=== PATIENT | male | born 1985 | race Caucasian/White ===

== ENCOUNTER 2018-10-11 22:28 | Emergency (ER) | payer SELFPAY ==
--- NOTE | 2018-10-11 22:44 | ED Physician Documentation ---
PD HPI SKIN - Stated complaint Stated Complaint: RASH - Chief complaint Chief Complaint: Wound - History obtained from History obtained from: Patient - History of Present Illness Timing - onset: How many days ago (2-3) Timing - duration: Days Timing - details: Gradual onset Location: RUE, LUE Quality / character: Painful, Burning, Discolored, Draining Associated symptoms: No: Fever Similar symptoms before: Diagnosis (similar to previous MRSA infection) - Additional information Additional information: c/o BUE lesions x few days that are painful, 1-2 of which are draining pus, and patient says are similar to previous MRSA infection Review of Systems Constitutional: denies: Fever, Chills, Sweats Skin: reports: Lesions (BUE) Musculoskeletal: denies: Extremity swelling PD PAST MEDICAL HISTORY - Past Medical History Past Medical History: Yes Cardiovascular: Hypertension Psych: ADD/ADHD - Present Medications Home Medications: Ambulatory Orders Medication Instructions Recorded Confirmed Dextroamphetamine/Amphetamine 30 mg PO DAILY 10/11/18 10/11/18 [Adderall Xr 30 mg Capsule] Losartan Potassium 1 tab PO DAILY 10/11/18 10/11/18 Sulfamethox/Trimeth 800/160 1 each PO BID #13 tablet 10/11/18 [Bactrim Ds 800/160] Testosterone Cypionate 0.5 ml IM 10/11/18 - Allergies Allergies/Adverse Reactions: Allergies Allergy/AdvReac Type Severity Reaction Status Date / Time No Known Drug Allergies Allergy Verified 10/11/18 22:36 PD ED PE NORMAL - Vitals Vital signs reviewed: Yes - General General: Alert and oriented X 3, No acute distress, Well developed/nourished - Derm Derm: Other (left thumb and right FA each have a single erythematous, tender raised area of swelling that is 0.5 cm diameter and without active drainage, no fluctuance.) Results - Vitals Vitals: Vital Signs - 24 hr 10/11/18 10/11/18 22:32 23:12 Temperature 37.2 C Heart Rate 96 84 Respiratory 17 15 Rate Blood Pressure 170/93 H 165/91 H O2 Saturation 97 95 Oxygen O2 Source Room air PD MEDICAL DECISION MAKING - ED course Complexity details: considered differential, d/w patient ED course: Patient shows me video he took earlier today with his phone of his left thumb when he was able to drain material from it; from the video, it does appear to be purulent drainage. will cover for possible MRSA with bactrim Departure - Departure Disposition: 01 Home, Self Care Clinical Impression: Cellulitis Condition: Good Instructions: ED Staph Infec Abx Tx Only, ED Infec Skin Cellulitis Follow-Up: [facility] [Provider Group] [facility] [Provider Group] Prescriptions: Sulfamethox/Trimeth 800/160 [Bactrim Ds 800/160] 1 each PO BID #13 tablet Forms: Activity restrictions Discharge Date/Time: 10/11/18 23:13
[2018-10-11] MEDS ORDERED: SULFAMETH/TRIMETH DS 800/160 MG TABLET PO STA (23:04)
[2018-10-11 23:13] VITALS: BP 165/91
== END 2018-10-11 23:13 | disposition home or self-care (01) ==
LOC: ED 22:28
DX: L03.012 Cellulitis of left finger (principal); L03.113 Cellulitis of right upper limb; Z86.14 Personal history of Methicillin resistant Staphylococcus aureus infection; I10 Essential (primary) hypertension
CPT/HCPCS: 99283; A9270

== ENCOUNTER 2018-10-21 02:48 | Emergency (ER) | payer SELFPAY ==
--- NOTE | 2018-10-21 02:59 | ED Physician Documentation ---
PD HPI SKIN - Stated complaint Stated Complaint: ARM PX - History obtained from History obtained from: Patient - History of Present Illness Timing - onset: How many days ago (10) Timing - duration: Days Timing - details: Gradual onset Pain level now: 5 Location: RUE Quality / character: Painful, Discolored, Raised, Draining Associated symptoms: No: Fever, Joint pain Contributing factors: Unknown Recently seen: Emergency Dept - Additional information Additional information: T+R from this ED 10 days ago for similar c/o, was put on bactrim and completed course with resolution of previous lesions. he presents with new lesion to right FA x few days, spreading rapidly. Review of Systems Constitutional: reports: Reviewed and negative Skin: reports: Lesions PD PAST MEDICAL HISTORY - Past Medical History Cardiovascular: Hypertension : Other Psych: ADD/ADHD - Past Surgical History Past Surgical History: Yes Ortho: Other - Present Medications Home Medications: Ambulatory Orders Medication Instructions Recorded Confirmed Dextroamphetamine/Amphetamine 30 mg PO DAILY 10/11/18 10/11/18 [Adderall Xr 30 mg Capsule] Losartan Potassium 1 tab PO DAILY 10/11/18 10/11/18 Testosterone Cypionate 0.5 ml IM 10/11/18 Doxycycline Hyclate [Vibramycin] 100 mg PO BID #19 capsule 10/21/18 Hydrocodone/Acetaminophen 1 - 2 each PO Q6HR PRN #14 tablet 10/21/18 [Hydrocodone-Acetamin 5-325 mg] - Allergies Allergies/Adverse Reactions: Allergies Allergy/AdvReac Type Severity Reaction Status Date / Time No Known Drug Allergies Allergy Verified 10/21/18 03:00 - Social History Does the pt smoke?: Yes Smoking Status: Current every day smoker Does the pt drink ETOH?: No Does the pt have substance abuse?: No - Immunizations Immunizations are current?: Yes - POLST Patient has POLST: No PD ED PE NORMAL - Vitals Vital signs reviewed: Yes - General General: Alert and oriented X 3, No acute distress, Well developed/nourished PD ED PE EXPANDED - Extremities DENNY UE/Hands Visual: 1 - rash (Confluent erythema with sharp margins, tenderness, and centralized 1cm raised area), swelling, tenderness Results - Vitals Vitals: Oxygen O2 Source Room air Procedures - Abscess I&D (location) Upper extremity right Ulnar Preparation: Chlorhexadine, Lidocaine 1% Incision: Incised with scalpel (Used the edge of 18 g needle), Other (after a few attempts to drain what appeared to be an abscess , it became clear that the central swelling was merely raised induration or else possibly abscess that had drained (it was only once the procedure was abandoned did patient tell me he had just expressed pus from the area immediately [employer])). No: Purulent drainage Other: Pt tolerated well, Dressing applied, Antibiotic prescribed PD MEDICAL DECISION MAKING - ED course Complexity details: reviewed old records, considered differential, d/w patient Departure - Departure Disposition: 01 Home, Self Care Clinical Impression: Cellulitis Condition: Good Instructions: ED Staph Infec Abx Tx Only Follow-Up: [facility] [Provider Group] [facility] [Provider Group] Prescriptions: Hydrocodone/Acetaminophen [Hydrocodone-Acetamin 5-325 mg] 1 - 2 each PO Q6HR PRN #14 tablet PRN Reason: Pain Doxycycline Hyclate [Vibramycin] 100 mg PO BID #19 capsule Discharge Date/Time: 10/21/18 03:44
[2018-10-21] MEDS ORDERED: LIDOCAINE 1% 2 ML VIAL SUBQ STA (03:09)
[2018-10-21 03:15] VITALS: BP 141/100
[2018-10-21] MEDS ORDERED: DOXYCYCLINE 100 MG TABLET PO STA (03:34)
[2018-10-21] MEDS ORDERED: IBUPROFEN 600 MG TABLET PO STA (03:34)
[2018-10-21] MEDS ORDERED: HYDROcod/ACETAM 5/325 MG TABLET PO STA (03:34)
== END 2018-10-21 03:44 | disposition home or self-care (01) ==
LOC: ED 02:48
DX: L03.113 Cellulitis of right upper limb (principal); I10 Essential (primary) hypertension; F17.200 Nicotine dependence, unspecified, uncomplicated
CPT/HCPCS: 10060; 99283; A9270